=== PATIENT | male | born 1960 | race Caucasian/White ===

== ENCOUNTER 2016-04-29 10:42 | Outpatient (CLI) | payer BC ==
[~2016-04-29] VITALS: Ht 177.8 cm; Wt 118.2 kg
--- NOTE | ~2016-04-29 | HEMODYNAMI ---
PATIENT:JENNI CHEN MEDICAL RECORD: [id number] : 62 [facility] [place] [id number] ADMISSION DATE: 04/29/16 Generatedon:04/29/201617:07 Patient name: JENNI CHEN Patient #: [id number] : 1960 Date of study: 04/29/2016 Page: Of Hemodynamic Procedure Report Patient Data Patient Demographics Procedure consent was obtained First Name: JENNI Gender: Male Last Name: GUSTAVO Suffix: [facility] Initial: M : 1960 Patient #: [id number] Age: 56 year(s) Race: SSN: [id number] Additional ID: [id number] Contact details Address: [place] [address] State: [place] City: [place] Zip code: [address] Past Medical History Allergies Allergen Reaction Date Comments Reported Other allergy 07/24/2014 Aleve (rash) Other allergy 04/29/2016 Aleve Admission Admission Data Admission Date: 04/29/2016 Admission Time: 10:42 Arrival Date: 04/29/2016 Arrival Time: 10:42 Admit Source: Emergency Insurance Payor: Private department health insurance [facility] [place] [facility] Height (in.): 70 BSA: 2.33 (m2) Height (cm.): 177.8 BMI: 37.31 (kg/m2) Weight (lbs.): 260 Weight (kg.): 117.93 Lab Results Lab Result Date: 04/29/2016 Lab Result Time: 0:00 Biochemistry Name Units Result Min Max BUN mg/dl 19 --(----)*- 7 18 Creatinine mg/dl 1 --(--*-)-- 0.6 1.3 CBC Name Units Result Min Max Hemoglobin g/dl 14.1 --(*---)-- 13.5 17.5 Procedure Procedure Types Cath Procedure Diagnostic Procedure [facility] w/Coronaries FFR/IVUS Intra-Coronary IVUS Initial Intra-Coronary IVUS Additional PCI Procedure Coronary Stent Initial Peripheral Cath Diagnostic Procedure Cath Peripheral Hpuht-Lxlqayt-Ryl-Off Procedure Description Procedure Date Procedure Date: 04/29/2016 Procedure Start Time: 16:40 Procedure End Time: 17:04 Procedure Staff Name Function Supa Vaughn MD Performing Physician Ros Cox RT Scrub Jyothi Son RN Nurse Lloyd Swenson RT Passenger Coach Driver Stella Austin RT Monitor Procedure Data Cath Procedure Fluoroscopy Diagnostic fluoroscopy Total fluoroscopy Time: 6.6 time: 6.6 min min Diagnostic fluoroscopy Total fluoroscopy dose: dose: 1048 mGy 1048 mGy Contrast Material Contrast Material Type Amount (ml) Isovue 370 124 Entry Location Entry Primary Successful Side Size Upsize Upsize Entry Closure Castellon ccessful Closure Location (Fr) 1 (Fr) 2 (Fr) Remarks Device Remarks Radial Right 6 Fr Mechanical artery Short Compression Estimated blood loss: 5 ml Diagnostic catheters Device Type Used For End Catheter Placement Terumo 5Fr Sebas 110cm Multi-vessel catheter Angiography Procedure Complications No complications Procedure Medications Medication Administration Route Dosage Oxygen NC 2 l/min Heparin Flush Bag added to field 2 bags (1000units/500ml NS) Lidocaine 2% added to field 20 Radial Cocktail added to field 1 syringe (Verapomil 2mg/Nitro 400mcg/Heparin 1500units) Benadryl I.V. 50 mg Versed I.V. 1 mg Fentanyl I.V. 50 mcg Versed I.V. 1 mg Fentanyl I.V. 50 mcg Radial Cocktail I.A. 1 syringe (Verapomil 2mg/Nitro 400mcg/Heparin 1500units) Versed I.V. 1 mg Fentanyl I.V. 50 mcg Heparin Bolus I.V. 4000 units Integrilin (Bolus I.V. 10.7 ml 2mg/ml) Plavix P.O. 600 mg Hemodynamics Rest BSA: 2.33 (m2) HGB: 14.1 (g/dl) O2 Consumption: Estimated: 254.31 (ml/min) O2 Co nsumption indexed: Estimated:109.15 (ml/min/m) Heart Rate: 45 (bpm) Pressure Samples Time Site Value (mmHg) Purpose Heart Use Rate(bpm) 16:44 LV 78/67,76 Snapshot 89 Snapshots Pre Cath Intra NCS Post Cath Vital Signs Time Heart Resp SPO2 NIBP (mmHg) Rhythm Pain Sedation Rate (ipm) (%) Status Level (bpm) 16:24:11 79 16 97 141/95(111) NSR 0 (11) 10(A) , No pain 16:28:27 71 15 98 139/92(116) NSR 0 (11) 10(A) , No pain 16:32:41 75 16 95 132/88(108) NSR 0 (11) 10(A) , No pain 16:36:59 77 16 95 124/83(101) NSR 0 (11) 10(A) , No pain 16:41:13 75 16 96 129/80(117) NSR 0 (11) 9(A) , No pain 16:45:25 83 16 94 129/112(116) NSR 0 (11) 9(A) , No pain 16:49:41 85 16 96 124/76(99) NSR 0 (11) 9(A) , No pain 16:53:59 84 26 96 126/71(105) NSR 0 (11) 9(A) , No pain 16:58:15 84 16 99 122/70(101) NSR 0 (11) 9(A) , No pain 17:02:31 83 16 98 120/75(103) NSR 0 (11) 9(A) , No pain 17:03:57 83 16 99 124/80(109) NSR 0 (11) 10(A) , No pain Medications Time Medication Route Dose Verified Delivered Reason Note s Effectiveness by by 16:27:48 Oxygen NC 2 l/min Supa Roe Per physician Johana Son RN 16:27:55 Heparin Flush added 2 bags Supa Cowart used for Bag to Johana Vaughn MD procedure (1000units/500ml field NS) 16:28:03 Lidocaine 2% added 20ml Supa Cowart used for to vial Johana Vaughn MD procedure field 16:28:09 Radial Cocktail added 1 Supa Cowart used for (Verapomil to syringe Johana Vaughn MD procedure 2mg/Nitro field 400mcg/Heparin 1500units) 16:28:16 Benadryl I.V. 50 mg Supa Reo Per physician Johana Son RN 16:36:24 Versed I.V. 1 mg Supa Jyothi for sedation Johana Son RN 16:36:37 Fentanyl I.V. 50 mcg Supa Jyothi for sedation Johana Son RN 16:38:50 Versed I.V. 1 mg Supa Jyothi for sedation Johana Son RN 16:38:56 Fentanyl I.V. 50 mcg Supa Jyothi for sedation Johana Son RN 16:40:49 Versed I.V. 1 mg Supa Jyothi for sedation Johana Son RN 16:40:54 Fentanyl I.V. 50 mcg Supa Jyothi for sedation Johana Son RN 16:43:36 Radial Cocktail I.A. 1 Supa Supa for (Verapomil syringe Johana Vaughn MD vasodilation 2mg/Nitro 400mcg/Heparin 1500units) 16:58:04 Heparin Bolus I.V. 4000 Supa Jyothi for dose units Johana Son RN anticoagulation verified with dr vaughn 16:59:49 Integrilin I.V. 10.7 ml Supa Jyothi for (Bolus 2mg/ml) Johana Son RN antiplatelet therapy 17:04:47 Plavix P.O. 600 mg Supa Jyothi for Johana Son RN antiplatelet therapy Procedure Log Time Note 16:11:17 Admit Source: Emergency department 16:11:42 Diagnostic Cath status Elective 16:11:45 Lloyd Swenson RT(R) sent for patient. Start room use. 16:11:46 Time tracking: Regular hours 16:11:52 Plan of Care:Hemodynamics will remain stable., Cardiac rhythm will remain stable., Comfort level will be maintained., Respiratory function will remain adequate., Patient/ family verbilizes understanding of procedure., Procedure tolerated without complication., Recovers from procedure without complications.. 16:17:56 Informed consent obtained and on chart 16:18:07 Arrival Date: 04/29/2016 10:42:00 AM 16:18:34 Insurance Payor : Private health insurance 16:19:11 Lab Result : Hemoglobin 14.1 g/dl 16:19:11 Lab Result : Creatinine 1 mg/dl 16:19:11 Lab Result : BUN 19 mg/dl 16:19:26 Patient received from ED to CCL 1 Alert and oriented. Tansferred to table in Supine position. 16:19:27 Warm blankets applied, and carla hugger turned on for patient comfort. 16:19:27 Correct patient and procedure confirmed by team. 16:19:28 ECG and BP/O2 sat monitors applied to patient. 16:23:02 Vital chart was started 16:23:12 Baseline sample Acquired. 16:23:16 Rhythm: sinus rhythm 16:27:48 Oxygen 2 l/min NC was given by Jyothi Son RN; Per physician; 16:27:55 Heparin Flush Bag (1000units/500ml NS) 2 bags added to field was given by Supa Vaughn MD; used for procedure; 16:28:03 Lidocaine 2% 20ml vial added to field was given by Supa Vaughn MD; used for procedure; 16:28:09 Radial Cocktail (Verapomil 2mg/Nitro 400mcg/Heparin 1500units) 1 syringe added to field was given by Supa Vaughn MD; used for procedure; 16:28:16 Benadryl 50 mg I.V. was given by Jyothi Son RN; Per physician; 16:33:47 Baseline sample Acquired. 16:33:50 Full Disclosure recording started 16:34:13 H&P Date Dictated: 04/29/2016 Within 30 days and on chart., H&P Addendum completed by physician on day of procedure. (MUST COMPLETE FOR ALL OUTPATIENTS). 16:34:14 Pre-procedure instructions explained to patient. 16:34:15 Pre-op teaching completed and patient verbalized understanding. 16:34:17 Family in waiting room. 16:34:18 Patient NPO since Midnight. 16:35:01 Patient allergic to Other allergyAleve 16:35:07 Is the patient allergic to Iodine/contrast media? No. 16:35:08 Was the patient premedicated? No 16:35:10 Is patient on blood thinner?Yes 16:35:13 ACC The patient was administered the following blood thiners within the last 24 hours: ACCPlavix 16:35:16 Patient diabetic? No. 16:35:18 Previous problem with sedation/anesthesia? No ? 16:35:20 Snore? Yes 16:35:21 Sleep apnea? No 16:35:23 Deviated septum? No 16:35:24 Opens mouth fully? Yes 16:35:25 Sticks out tongue? Yes 16:35:32 Airway obstruction? Yes copd, asthma 16:35:48 Dentures? No ? 16:35:52 Pre procedure: right dorsailis pedis pulse 1+ Palpable, but thready & weak; easily obliterated 16:35:55 Modified Matthew's test Radial < 7 seconds 16:35:57 Patient pain scale 0/10 ?. 16:36:03 IV patent on arrival in left forearm with 0.9% NaCl at [facility]. 16:36:07 Lab results completed and on chart. 16:36:13 Right Radial & Right Groin area was prepped with chlora-prep and draped in sterile fashion 16:36:14 Alarms reviewed by R. N. 16:36:14 Sharps counted by scrub and verified by R.N. 16:36:16 Physician arrived 16:36:16 --------ALL STOP TIME OUT------ 16:36:17 Final Timeout: patient, procedure, and site verified with staff and physician. All members of the team are in agreement. 16:36:19 Right Radial & Right Groin site verified by team. 16:36:21 Physical assessment completed. ASA score P 2 - A patient with mild systemic disease as per Supa Vaughn MD. 16:36:24 Versed 1 mg I.V. was given by Jyothi Son RN; for sedation; 16:36:24 Sedation plan: IV Moderate Sedation Versed, Fentanyl 16:36:30 Use device set Radial Dx 16:36:31 Acist Syringe opened to sterile field. 16:36:32 Cardinal Cath Pack opened to sterile field. 16:36:32 Bag Decanter opened to sterile field. 16:36:32 Terumo 6Fr Slender Glidesheath opened to sterile field. 16:36:33 St Donell 260cm J .035 wire opened to sterile field. 16:36:33 Acist Hand Control opened to sterile field. 16:36:34 Acist Manifold opened to sterile field. 16:36:37 Fentanyl 50 mcg I.V. was given by Jyothi Son RN; for sedation; 16:36:37 Tegaderm 4 x 4 opened to sterile field. 16:38:46 Zero performed for pressure channel P1 16:38:50 Versed 1 mg I.V. was given by Jyothi Son RN; for sedation; 16:38:56 Fentanyl 50 mcg I.V. was given by Jyothi Son RN; for sedation; 16:40:19 Procedure type changed to Cath procedure, Diagnostic procedure, LHC, LHC w/Coronaries, FFR/IVUS, Intra-Coronary IVUS Initial, Intra-Coronary IVUS Additional, PCI procedure, Coronary Stent Initial, Peripheral Cath Diagnostic Procedure, Cath Peripheral, Aiysy-Hmzwoce-Was-Off 16:40:28 Procedure started. 16:40:32 Local anesthetic to right radial artery with Lidocaine 2% by Supa Vaughn MD.INITIAL ACCESS ONLY 16:40:49 Versed 1 mg I.V. was given by Jyothi Son RN; for sedation; 16:40:54 Fentanyl 50 mcg I.V. was given by Jyothi Son RN; for sedation; 16:43:14 A 6 Fr Short sheath was inserted into the Right Radial artery 16:43:36 Radial Cocktail (Verapomil 2mg/Nitro 400mcg/Heparin 1500units) 1 syringe I.A. was given by Supa Vaughn MD; for vasodilation; 16:43:40 A [employer] 5Fr Sebas 110cm catheter was advanced over the wire and used for Multi-vessel Angiography. 16:44:37 LV hemodynamics recorded. 16:44:38 LV gram done using YUSUF 16:44:41 Injector settings: Ml/sec: 5, Volume: 15, 16:44:46 EF : 55 % 16:44:51 LCA angiography performed. 16:44:53 Injector settings: Ml/sec: 3, Volume: 6, 16:47:09 RCA angiography performed. 16:47:12 Injector settings: Ml/sec: 3, Volume: 6, 16:47:13 Catheter removed. 16:47:14 Proceeding to intervention. 16:47:28 Hayes Whisper J 300cm 0.014 guide wire opened to sterile field. 16:47:29 FastModel Sports BasixCompak Inflation Kit opened to sterile field. 16:47:30 Micro Hi-Willie Berenstein Catheter opened to sterile field. 16:47:56 5 Fr berenstein guide catheter was inserted over the wire 16:48:19 Abdominal angiogram w/ runoff was performed. 16:48:51 [place] IVUS Catheter opened to sterile field. 16:48:58 Cordis 6FR XBLAD 3.5 guide catheter opened to sterile field. 16:49:10 Catheter removed. 16:50:02 6 Fr xblad 3.5 guide catheter was inserted over the wire 16:50:09 whisper wire advanced. 16:50:10 Wire advanced across lesion. 16:50:11 IVUS catheter advanced over wire. 16:51:47 IVUS pass to Circ lesion performed. 16:55:14 Wire redirected to lad. 16:57:30 IVUS pass to LAD lesion performed. 16:57:30 IVUS catheter removed over wire. 16:58:04 Heparin Bolus 4000 units I.V. was given by Jyothi Son RN; for anticoagulation; dose verified with dr vaughn 16:59:49 Integrilin (Bolus 2mg/ml) 10.7 ml I.V. was given by Jyothi Son RN; for antiplatelet therapy; 16:59:54 Inflation Number: 1 A OCZ Technologytronic Integrity 3.5 X 15 stent was prepped and advanced across the Mid LAD. The stent was deployed at 17 ARNULFO for 0:10 (min:sec). 17:00:11 Inflation number: 2 The stent balloon was then re-inflated across the Mid LAD to 15 ARNULFO for 0:10 (min:sec). 17:01:08 Stent catheter was removed intact over wire. 17:01:09 Wire removed. 17:01:09 Guide catheter removed. 17:01:22 Terumo TR Band Large opened to sterile field. 17:02:42 Sheath removed intact; hemostasis achieved with Mechanical Compression to the Right Radial artery. 17:02:51 Procedure ended.(Physican Out) 17:03:45 Fluoroscopy time 06.60 minutes. 17:03:49 Fluoroscopy dose: 1048 mGy 17:03:49 Flurop Dose total: 1048 17:04:00 Contrast amount:Isovue 370 124ml. 17:04:01 Sharps counted by scrub and verified by R.N. 17:04:04 TR band inflated with 11cc of air. 17:04:06 Insertion/operative site no bleeding no hematoma. 17:04:10 Post right radial artery:stable 17:04:21 Post Procedure Pulses reassessed and unchanged 17:04:23 Post procedure rhythm: unchanged. 17:04:26 Estimated blood loss: 5 ml 17:04:27 Post procedure instruction explained to patient.Patient verbalizes understanding. 17:04:28 Patient needs reinforcement of post procedure teaching. 17:04:28 Procedure and supply charges have been captured, reviewed, submitted and are correct. 17:04:32 Procedure Complication : No complications 17:04:35 Vital chart was stopped 17:04:38 Report given to Outpatients. 17:04:41 Patient transfered to Outpatients with Stretcher. 17:04:43 Procedure ended. 17:04:43 Full Disclosure recording stopped 17:04:47 Plavix 600 mg P.O. was given by Jyothi Son RN; for antiplatelet therapy; 17:04:54 ACC-PCI Only Patient was given prescriptions, or instructed by Supa Vaughn MD to start/continue the following medications upon discharge: Plavix 17:04:56 End room use (Document Last) 17:06:00 Patient Height : 177.8 inches 17:06:03 Patient Weight : 117.93 lbs Intervention Summary Intervention Notes Time ActionType Lesion and Equipment Action# Pressure Duration Attributes Used 16:59:54 Place stent Mid LAD Medtronic 1 17 00:10 Integrity 3.5 X 15 stent 17:00:11 Reinflate Mid LAD Medtronic 2 15 00:10 stent Integrity balloon 3.5 X 15 stent Device Usage Item Name Manufacture Quantity Catalog Hospital Part Current Minimal Lot# / Number Charge Number Stock Stock Serial# Code Acist Acist 1 51476 848504 329123 193535 20 Syringe Medical Systems Inc Cardinal Cardinal [address] 053723 63914 812502 5 Cath Pack Health Bag Microtek 1 2001S 427123 79931 977253 5 DecHello! Messenger [employer]. Terumo 6Fr Terumo 1 [id number] 454450 579226 162262 [address] Donell St Donell 1 550627 078715 739880 327664 30 260cm J .035 wire Acist Hand Acist 1 87553 020674 776887 484188 5 Control Medical Systems Inc Acist Acist 1 92340 494266 790421 469378 5 Manifold Medical Systems Inc Tegaderm 4 3M 1 1626W 740660 549905 372164 5 x 4 Terumo 5Fr Terumo 1 78-0336 118415 815300 250047 5 Sebas 110cm catheter [place] 1 [id number] 313156 827350 581261 5 Whisper J Vascular 300cm 0.014 guide wire [facility] 1 NC4255 114784 493168 908827 15 BasixCompak Medical Inflation Kit Micro [place] 1 [id number] 531521 897567 625659 5 Hi-Willie Scientific Berenstein Catheter [place] 1 [id number] 539877 040715 888874 8 [place] Eagleye IVUS Catheter Cordis 6FR Cardinal 1 [id number] 636385 073514 568573 10 XBLAD 3.5 Health guide catheter Medtronic Medtronic 1 [id number] 203104 301910 258883 4 [id number] Integrity 3.5 X 15 stent Terumo TR Terumo 1 [id number] 044095 285608 40 Band Large Signature Audit [place] Stage Time Signature Unsigned Intra-Procedure 04/29/2016 Stella Austin 5:07:46 PM RT(R) Signatures Monitor : Stella Austin RT Signature : Date : Time : [facility] [address] [place] [address]
[~2016-04-29 10:42] MED LIST: ASPIRIN 81 MG E81 MG PO; CHOLESTEROL MED; FISH OIL 1,0001 CA1 PO; IMDUR30 MG PO; LIPITOR40 MG PO; NITROQUICK0.4 MG; PLAVIX75 MG PO; PROAIR HFA8.5 GM INH; SPIRIVA18 MCG INH; TRI-VI-SOL50 ML PO
[2016-04-29 11:34] LABS: BASOPHILS 0.7 % (0.0-2.0); HEMATOCRIT 42.1 % (42.0-54.0); HEMOGLOBIN 14.1 g/dL (13.5-17.5); IMMATURE GRANULOCYTES 0.7 % (0-5); LYMPHOCYTES 33.7 % (15-50); MCH 31.1 pg (26.0-34.0); MCHC 33.5 g/dL (31.0-37.0); MCV 92.9 fL (80.0-100.0); MEAN PLATELET VOLUME 9.5 fL (7.4-10.4); MONOCYTES 9.1 % (2-11); NEUTROPHILS 53.8 % (40-80); PLATELET COUNT 209 10x3/uL (130-400); RBC 4.53 10x6/uL (4.20-6.10); RDW 12.7 % (11.5-14.5); WBC 7.7 10x3/uL (4.8-10.8)
[2016-04-29 12:06] LABS: ALBUMIN 3.9 g/dL (3.4-5.0); ALKALINE PHOSPHATASE 88 U/L (46-116); ALT (SGPT) 67 U/L (10-68); CALC OSMOLALITY 281 mosm/kg (275-300); CALCIUM 9.6 mg/dL (8.5-10.1); CARBON DIOXIDE 27.7 mmol/L (21.0-32.0); CHLORIDE - SERUM 102 mmol/L (98-107); POTASSIUM - SERUM 3.7 mmol/L (3.5-5.1); PROTEIN - SERUM 7.4 g/dL (6.4-8.2); SODIUM 138 mmol/L (136-145); UREA NITROGEN 19 mg/dL (7-18); eGFR NON AFRICAN AMERICAN 82 mL/min (90-120)
[2016-04-29 12:10] LABS: GLUCOSE 175 mg/dL (74-106)
[2016-04-29 12:17] LABS: CKMB 2.3 U/L (0.0-3.6); CREATINE KINASE 319 UL (21-232); TROPONIN-I < 0.017 ng/mL (0.000-0.060)
[2016-04-29 15:55] VITALS: BP 135/86; Ht 177.8 cm; Wt 118.2 kg
--- NOTE | 2016-04-29 17:59 | NUR ---
1720 NO TELEMENTARY AVAILABLE
--- NOTE | 2016-04-29 20:40 | NUR ---
AIR WEANING FROM TR BAND COMPLETE, TR BAND REMOVED, BANDAGE PLACED TO RIGHT WRIST. NO BLEEDING OR SWELLING AT PUNCTURE SITE. PATIENT AMBULATES TO BATHROOM WITH STAND-BY ASSIST AND URINATES LARGE AMOUNT IN TOILET WITHOUT DIFFICULTY. RIGHT FOREARM PIV DC'D WITH TIP INTACT. DRESSING IN PERSONAL CLOTHING.
--- NOTE | 2016-04-29 21:00 | NUR ---
DISCHARGE INSTRUCTIONS REVIEWED WITH PATIENT, DISCHARGED HOME VIA WHEELCHAIR TO PRIVATE VEHICLE WITH FRIEND
--- NOTE | 2016-05-02 11:12 | OP ---
PATIENT NAME: JENNI CHEN SR MEDICAL RECORD: [id number] :62 LOCATION:D.OPS ADMISSION DATE: SURGEON: ADELE TAYLOR MD DATE OF OPERATION: 04/29/2016 PROCEDURES: 1. PTCA stent LAD. 2. Intravascular ultrasound of the LAD. 3. Left heart catheterization. 4. Selective coronary angiography. 5. Left ventriculogram. INDICATION: Angina and coronary artery disease. PROCEDURE IN DETAIL: After informed consent was obtained and after a detailed explanation of the risks, benefits as well as alternative therapies, the patient elected to proceed with angiogram and angioplasty. The right radial area was prepped and draped in normal sterile fashion. The right radial artery was cannulated via modified Seldinger technique with placement of 6-Emirati sheath. All catheters exchanged through this sheath. FINDINGS: The left ventriculogram was performed in standard 30-degree YUSUF view reveals good cardiac wall motion throughout all segments. Overall ejection fraction estimated at 60%. SELECTIVE CORONARY ANGIOGRAPHY: 1. Left main significant angiographic disease. 2. Left anterior descending has previously placed stent just before this, there is 66% in-stent restenosis and stenosis confirmed by intravascular ultrasound. 3. Left circumflex has moderate irregularities, but no flow-limiting stenosis. Intravascular ultrasound of left circumflex reveals no stenosis greater than 20% to 30%. 4. Right coronary has moderate irregularities, but no flow-limiting stenosis. PTCA STENT OF THE LAD: The stent used was a 3.5 x 15-mm Integrity taken to 17 atmospheres. Result was 0% residual stenosis. OVERALL IMPRESSION: Successful percutaneous transluminal coronary angioplasty stent of the left anterior descending going from 65-70% initial stenosis confirmed by intravascular ultrasound to 0% residual stenosis. TRANSINT:[id number] Voice Confirmation ID: [id number] DOCUMENT ID: [id number] ADELE TAYLOR MD at 1112 CC: [id number] DICTATION DATE: 04/29/161705 MANDARIN CHINESE TEACHER: 04/29/162125 DEP CLI 04/29/[address] [address]
--- NOTE | 2016-05-02 11:12 | OP ---
PATIENT NAME: JENNI CHEN SR MEDICAL RECORD: [id number] :62 LOCATION:D.[facility] ADMISSION DATE: SURGEON: ADELE TAYLOR MD DATE OF OPERATION: 04/29/2016 Addendum Bilateral extremity angiography was performed with the Berenstein catheter selecting each lower extremity. TRANSINT:[id number] Voice Confirmation ID: [id number] DOCUMENT ID: [id number] ADELE TAYLOR MD at 1112 CC: [id number] DICTATION DATE: 05/01/16 1219 FRATERNITY HOUSE COOK: 05/01/16 1450 DEP CLI 04/29/16 [facility] [address] [place] [id number]
--- NOTE | 2016-05-23 08:46 | HP ---
PATIENT: JENNI CHEN MEDICAL RECORD: [id number] ACCOUNT: [id number] LOCATION:[facility] : 62 ADMISSION DATE: 04/29/16 HISTORY AND PHYSICAL EXAMINATION ADMITTING DIAGNOSES: 1. Angina. 2. Coronary artery disease. HISTORY OF PRESENT ILLNESS: This is a gentleman presents with increasing anginal symptomatology. He has a past history of coronary artery disease. His chest pain is just like that of his previous chest pain. PHYSICAL EXAMINATION: GENERAL APPEARANCE: Well-nourished, well-developed, appears stated age. Level of distress, comfortable. PSYCHIATRIC: Mental status, alert, normal affect. Orientation, oriented to time, place and person. EYES: Lids and conjunctiva, noninjected. No discharge, no pallor. ENT: Lips, teeth, gums, normal dentition. Oropharynx, no cyanosis, no pallor. NECK: Carotid arteries, bilateral normal upstroke, no bruits, no thrills. JUGULAR VEINS: No jugular venous pressure or distention. CERVICAL LYMPH NODES: Nontender, nonenlarged. THYROID: Not enlarged. Nontender. No nodules. LUNGS: Respiratory effort, unlabored. CHEST: Normal curvature. No thoracic deformity. No chest wall tenderness. Percussion, resonant. Auscultation, clear. No wheezes, no rales, no rhonchi. CARDIOVASCULAR: Precordial exam, nondisplaced. No heaves or pericardial thrills. Rate and rhythm, regular. Heart sounds, normal S1, normal S2. No S3, no gallop, no rub. Systolic murmur, not heard. Diastolic murmur, not heard. EXTREMITIES: No cyanosis, no edema. Peripheral pulses, full and equal in all extremities, except as noted. No bruits appreciated. ABDOMEN: Soft, nondistended. Normal aorta. No bruit. Nontender. No masses. Liver, nontender, no hepatomegaly. Spleen, nontender, no splenomegaly. MUSCULOSKELETAL: No joint tenderness. No joint swelling. No erythema. NEUROLOGICAL: Normal gait, normal strength, normal tone. SKIN: Warm and dry. REVIEW OF SYSTEMS: The patient reports easy bruising but reports no swollen glands. The patient reports no fever, no night sweats, no significant weight gain, no significant weight loss. No significant exercise tolerance. The patient reports no dry eyes, no irritation, no vision change. Patient reports no difficulty hearing and no ear pain. Patient reports no frequent nose bleeds or nose and sinus problems. Patient reports on arm pain on exertion. No shortness of breath while lying down. No history of heart murmur. Patient reports no cough, no wheezing or coughing up blood. Patient reports no abdominal pain, no vomiting. Normal appetite. No diarrhea and not vomiting blood. No nausea and no constipation. Patient reports no incontinence. No difficulty urinating. No hematuria. No increased frequency. Patient reports no muscle aches. No weakness, no arthralgias, no back pain. No swelling of the extremities. Patient reports no abnormal mole, no jaundice, no rashes. Reports no loss of consciousness. No weakness and no numbness. No seizures, dizziness, or headaches. The patient reports no depression, no sleep disturbance, feeling safe in a relationship and no alcohol abuse. Patient reports on fatigue. Reports no runny nose or sinus pressure. No itching, no hives, and no frequent HISTORY AND PHYSICAL [id number] JENNI CHEN SR sneezing. OVERALL IMPRESSION: Chest pain compatible with angina, most likely he has recurrent hemodynamically significant coronary artery disease. We will proceed with coronary angiography. Further care depends upon findings of the angiography. TRANSINT:[id number] Voice Confirmation ID: [id number] DOCUMENT ID: [id number] ADELE TAYLOR MD at 0846 CC: [id number] DICTATION DATE: 05/09/16 1227 MARGARINE MAKER: 05/09/16 1402 DEP CLI 04/29/16 [place] [id number]
== END 2016-04-29 21:05 | disposition home or self-care (01) ==
LOC: D.ER 10:42 → D.OPS 10:42 → D.SDCHOLD 10:42 → EDSTATUS 12:15 → D.SDCHOLD 14:40 → D.OPS 21:05
PROVIDERS: Emergency Medicine
DX: I25.119 Atherosclerotic heart disease of native coronary artery with unspecified angina pectoris (principal); T82.855A Stenosis of coronary artery stent, initial encounter

== ENCOUNTER → 2016-05-05 15:01 | Outpatient (CLI) | payer BC ==
[2016-04-29 15:55] VITALS: BMI 37.3
== END | disposition home or self-care (01) ==
LOC: D.US 11:00
DX: M79.605 Pain in left leg (principal)

== ENCOUNTER → 2016-05-21 07:38 | Outpatient (CLI) | payer BC ==
[2016-04-29 15:55] VITALS: BMI 37.3
== END ==
LOC: D.MRI 07:38
DX: M54.16 Radiculopathy, lumbar region (principal)

== ENCOUNTER → 2016-08-15 10:36 | Outpatient (CLI) | payer BC ==
[2016-04-29 15:55] VITALS: BMI 37.3
== END | disposition home or self-care (01) ==
LOC: D.RT 10:36
DX: J44.9 Chronic obstructive pulmonary disease, unspecified (principal)

== ENCOUNTER → 2016-09-17 14:26 | Outpatient (CLI) | payer BC ==
[2016-04-29 15:55] VITALS: BMI 37.3
== END | disposition home or self-care (01) ==
LOC: D.RAD 14:26
DX: M48.06 Spinal stenosis, lumbar region (principal)

== ENCOUNTER → 2017-05-05 07:44 | Outpatient (CLI) | payer MEDICAID ==
[2016-04-29 15:55] VITALS: BMI 37.3
--- NOTE | ~2017-05-05 | ST ---
PATIENT:JENNI CHEN MEDICAL RECORD: [id number] SEX: M LOCATION:[facility] ORDER #: ADMISSION DATE: 05/05/17 AGE OF PATIENT: 57 REFERRING PHYSICIAN: INTERPRETING PHYSICIAN: LOYD LYNN MD DATE OF SERVICE: 05/05/2017 PROCEDURE: Lexiscan stress test. INDICATION: Chest pain, coronary artery disease. PROTOCOL: The patient underwent a standard Lexiscan injection without difficulty. He had no ST or T-wave changes during the procedure. Procedure was terminated for completion of the protocol. NUCLEAR INJECTION: 8.4 mCi sestamibi injected at 0825 hours and the stress portion was done on the same day with 24.5 mCi sestamibi injected at 1045 hours. Gated imaging revealed an ejection fraction of 61%. The SPECT imaging revealed a mild anterior lateral defect. CONCLUSION: This is a mildly abnormal stress test. The perceived ischemic burden is very small with preserved LV systolic function. Risk score is low. It would be reasonable to treat underlying risk factors and medical management. However, if clinical situation dictates angiography may be helpful. TRANSINT:[id number] Voice Confirmation ID: [id number] DOCUMENT ID: [id number] LOYD LYNN MD CC: [id number] DICTATION DATE: 05/07/17814 COLLEGE ATHLETIC DIRECTOR: 05/07/17 1018 DEP CLI 05/05/17 [id number] [place] [address]
== END | disposition home or self-care (01) ==
LOC: D.NM 07:44
DX: I25.10 Atherosclerotic heart disease of native coronary artery without angina pectoris (principal); I10 Essential (primary) hypertension; R06.00 Dyspnea, unspecified

== ENCOUNTER 2018-07-20 16:36 | Inpatient (IN) | payer MEDICAID ==
[~2018-07-20] VITALS: Ht 180.3 cm; Wt 122.8 kg
--- NOTE | ~2018-07-20 | HEMODYNAMI ---
PATIENT:JENNI CHEN MEDICAL RECORD: [id number] : 62 LOCATION:[facility] D.2105 [facility]# [id number] ADMISSION DATE: 07/20/18 Generatedon:07/21/201811:52 Patient name: JENNI CHEN Patient #: [id number] : 1960 Date of study: 07/21/2018 Page: Of Hemodynamic Procedure Report Patient Data Patient Demographics Procedure consent was obtained First Name: JENNI Gender: Male Last Name: GUSTAVO Suffix: [facility] Initial: M : 1960 Patient #: [id number] Age: 58 year(s) Race: SSN: [id number] Additional ID: [id number] Contact details Address: [address] [address] State: [place] City: [place] Zip code: [address] Past Medical History Allergies Allergen Reaction Date Comments Reported Other allergy 07/24/2014 Aleve (rash) Other allergy 04/29/2016 Aleve Admission Admission Data Admission Date: 07/20/2018 Admission Time: 18:48 Room #: D.2105 Procedure Procedure Types Cath Procedure Diagnostic Procedure LHC [facility] w/Coronaries FFR/IVUS Intra-Coronary IVUS Initial Procedure Description Procedure Date Procedure Date: 07/21/2018 Procedure Start Time: 11:41 Procedure End Time: 11:51 Procedure Staff Name Function Supa Vaughn MD Performing Physician Sabas Benavides RT Monitor Stella Austin RT Scrub Fiorella Hart RN Nurse Procedure Data Cath Procedure Fluoroscopy Diagnostic fluoroscopy Total fluoroscopy Time: 2.5 time: 2.5 min min Diagnostic fluoroscopy Total fluoroscopy dose: 799 dose: 799 mGy mGy Contrast Material Contrast Material Type Amount (ml) Isovue 300 77 Entry Location Entry Primary Successful Side Size Upsize Upsize Entry Closure Castellon ccessful Closure Location (Fr) 1 (Fr) 2 (Fr) Remarks Device Remarks Femoral Right 6 Fr Mechanical artery Short Compression Diagnostic catheters Device Type Used For End Catheter Placement DIAGNOSTIC [place] Furnace 110cm 5 LV Angiography Fr catheter ([id number]) Procedure Complications No complications Procedure Medications Medication Administration Route Dosage Oxygen etCO2 Nasal cannula 2 l/min Lidocaine 2% added to field 20 Heparin Flush Bag added to field 2 bags (1000units/500ml NS) 0.9% NaCl I.V. 100 ml/hr Radial Cocktail added to field 1 syringe (Verapomil 2mg/Nitro 400mcg/Heparin 1500units) Benadryl I.V. 50 mg Versed I.V. 2 mg Fentanyl I.V. 100 mcg Versed I.V. 1 mg Fentanyl I.V. 50 mcg Versed I.V. 1 mg Hemodynamics Rest Heart Rate: 78 (bpm) Snapshots Pre Cath Intra NCS Post Cath Vital Signs Time Heart Resp SPO2 etCO2 NIBP (mmHg) Rhythm Pain Sedation Rate (ipm) (%) (mmHg) Status Level (bpm) 11:20:26 79 20 95 37.4 138/87(114) NSR 0 (11) 10(A) , No pain 11:24:35 75 11 94 41.9 125/78(103) NSR 0 (11) 10(A) , No pain 11:28:45 71 18 95 41.9 108/76(97) NSR 0 (11) 10(A) , No pain 11:32:53 74 19 94 45.6 117/71(92) NSR 0 (11) 10(A) , No pain 11:37:40 71 17 95 44.8 115/75(89) NSR 0 (11) 9(A) , No pain 11:41:48 72 16 94 46.3 119/82(98) NSR 0 (11) 9(A) , No pain 11:46:59 81 16 93 47.1 112/72(93) NSR 0 (11) 9(A) , No pain 11:51:09 75 16 95 46.3 123/68(99) NSR 0 (11) 10(A) , No pain Medications Time Medication Route Dose Verified Delivered Reason Notes Effectiveness by by 11:23:21 Oxygen etCO2 2 l/min Supa Barros used for Nasal Johana Hart drum sprayer cannula 11:23:29 Lidocaine 2% added 20ml Supa Cowart for local to vial Johana Vaughn MD anesthetic field 11:23:34 Heparin Flush added 2 bags Supa Supa used for Bag to Johana Vaughn MD procedure (1000units/500ml field NS) 11:23:43 0.9% NaCl I.V. 100 Supa Buffie Per ml/hr Johana Hart RN physician 11:23:50 Radial Cocktail added 1 Supa Supa for (Verapomil to syringe Johana Vaughn MD vasodilation 2mg/Nitro field 400mcg/Heparin 1500units) 11:24:48 Benadryl I.V. 50 mg Supa Buffie used for Johana Hart RN procedure 11:34:01 Fentanyl I.V. 100 mcg Supa Salazarie for sedation Johana Hart RN 11:34:54 Versed I.V. 2 mg Supa Buffie for sedation Johana Hart RN 11:38:32 Versed I.V. 1 mg Supa Buffie for sedation Johana Hart RN 11:38:37 Fentanyl I.V. 50 mcg Supa Salazarie for sedation Johana Hart RN 11:47:04 Versed I.V. 1 mg Supa Salazarie for sedation Johana Hart RN Procedure Log Time Note 11:00:32 Sabas Benavides RT(R) sent for patient. Start room use. 11:17:39 Time tracking: Regular hours (M-F 7:00 - 5:00) 11:17:42 Plan of Care:Hemodynamics will remain stable., Cardiac rhythm will remain stable., Comfort level will be maintained., Respiratory function will remain adequate., Patient/ family verbilizes understanding of procedure., Procedure tolerated without complication., Recovers from procedure without complications.. 11:17:47 Patient received from Med II to CCL 2 Alert and oriented. Tansferred to table in Supine position. 11:17:48 Warm blankets applied, and carla hugger turned on for patient comfort. 11:17:49 Correct patient and procedure confirmed by team. 11:17:50 Signed procedure consent form obtained from patient. 11:17:51 ECG and BP/O2 sat monitors applied to patient. 11:19:21 Vital chart was started 11:19:22 Baseline sample Acquired. 11:19:25 Rhythm: sinus rhythm 11:19:26 Full Disclosure recording started 11:19:29 H&P Date Dictated: 07/21/2018 Within 30 days and on chart.. 11:19:29 Pre-procedure instructions explained to patient. 11:19:30 Pre-op teaching completed and patient verbalized understanding. 11:19:32 Family unavailable. 11:19:34 Patient NPO since Midnight. 11:19:51 Is the patient allergic to Iodine/contrast media? No. 11:20:01 Is patient on blood thinner?Yes 11:20:03 ACC The patient was administered the following blood thiners within the last 24 hours: ACCPlavix 11:23:12 Patient diabetic? Yes. 11:23:15 If diabetic: On Metformin? No 11:23:15 ----Pre-sedation anethsthesia assessment.---- 11:23:18 Previous problem with sedation/anesthesia? No ? 11:23:20 Snore? Yes 11:23:21 Oxygen 2 l/min etCO2 Nasal cannula was administered by Fiorella Hart RN; used for procedure; 11:23:21 Sleep apnea? Yes 11:23:22 Deviated septum? No 11:23:24 Opens mouth fully? Yes 11:23:25 Sticks out tongue? Yes 11:23:29 Lidocaine 2% 20ml vial added to field was administered by Supa Vaughn MD; for local anesthetic; 11:23:30 Airway obstruction? Yes COPD 11:23:33 Dentures? No ? 11:23:34 Heparin Flush Bag (1000units/500ml NS) 2 bags added to field was administered by Supa Vaughn MD; used for procedure; 11:23:36 Pre procedure: right dorsailis pedis pulse 1+ Palpable, but thready & weak; easily obliterated 11:23:38 Modified Matthew's test Ulnar < 7 seconds 11:23:41 Patient pain scale 0/10 ?. 11:23:43 0.9% NaCl 100 ml/hr I.V. was administered by Fiorella Hart RN; Per physician; 11:23:50 Radial Cocktail (Verapomil 2mg/Nitro 400mcg/Heparin 1500units) 1 syringe added to field was administered by Supa Vaughn MD; for vasodilation; 11:23:50 IV patent on arrival in right hand with 0.9% NaCl at [facility]. 11:23:54 Lab results completed and on chart. 11:23:57 Right Radial & Right Groin area was prepped with chlora-prep and draped in sterile fashion 11::58 Alarms reviewed by R. N. ::58 Sharps counted by scrub and verified by R.N. 11:24:48 Benadryl 50 mg I.V. was administered by Fiorella Hart RN; used for procedure; : Physician arrived --------ALL STOP TIME OUT------ : Final Timeout: patient, procedure, and site verified with staff and physician. All members of the team are in agreement. 11:33:25 Right Radial & Right Groin site verified by team. 11:33:29 Maximum allowable Isovue 300 dose 300ml. Physician notified. (300ml for normal creatinines. For patients with creatinine of 1.7 or higher multiply weight(kg) x 5 divided by creatinine.) 11:33:32 Fire Safety Assessment: A--An alcohol-based skin anteseptic being used preoperatively., C--Open oxygen or nitrous oxide is being used., D--An ESU, laser, or fiber-optic light is being used. 11:33:35 Physical assessment completed. ASA score P 2 - A patient with mild systemic disease as per Supa Vaughn MD. 11:33:39 Sedation plan: IV Moderate Sedation Medication:Versed, Fentanyl 11:34:01 Fentanyl 100 mcg I.V. was administered by Fiorella Hart RN; for sedation; 11:34:54 Versed 2 mg I.V. was administered by Fiorella Hart RN; for sedation; 11:38:32 Versed 1 mg I.V. was administered by Fiorella Hart RN; for sedation; 11:38:37 Fentanyl 50 mcg I.V. was administered by Fiorella Hart RN; for sedation; 11:40:53 Procedure started. 11:41:04 Local anesthetic to right radial artery with Lidocaine 2% by Supa Vaughn MD.INITIAL ACCESS ONLY 11:41:12 A 6 Fr Short sheath was inserted into the Right Femoral artery 11:41:38 Zero performed for pressure channel P1 11:43:20 Use device set Radial Dx or PCI 11:43:21 ACIST Syringe (18967) opened to sterile field. 11:43:21 Bag Decanter () opened to sterile field. 11:43:22 Medline Cath Pack ([id number]) opened to sterile field. 11:43:22 DIAGNOSTIC WIRE .035 260cm J wire (091799) opened to sterile field. 11:43:23 ACIST Hand Control (97875) opened to sterile field. 11:43:25 ACIST Manifold (63969) opened to sterile field. 11:43:28 Tegaderm 4 x 4 (1626W) opened to sterile field. 11:43:28 MBrace Wrist Support ([id number]) opened to sterile field. 11:43:30 TR BAND Large ([id number]) opened to sterile field. 11:43:31 SHEATH 6FR Slender (80-1060) opened to sterile field. 11:43:45 A DIAGNOSTIC [place]ace 110cm 5 Fr catheter (358842) was advanced over the wire and used for LV Angiography. 11:43:49 LV angiography performed. 11:43:51 LV gram done using YUSUF 11:43:55 EF : 55 % 11:44:00 LCA angiography performed. 11:44:39 RCA angiography performed. 11:45:09 Catheter exchanged over wire. 11:46:00 INFLATOR Merit BasixCompak (CI8722) opened to sterile field. 11:46:03 [place] IVUS Catheter (33490D) opened to sterile field. 11:46:04 CHOICE PT Extra Support 182cm wire ([id number]) opened to sterile field. 11:46:13 GUIDE 6FR XB 3.5 catheter ([id number]) opened to sterile field. 11:46:46 6 Fr XB 3.5 guide catheter was inserted over the wire 11:46:50 CPTES wire advanced. 11:46:53 FFR/IVUS 11:46:53 IVUS catheter advanced over wire. 11:47:04 Versed 1 mg I.V. was administered by Fiorella Hart RN; for sedation; 11:47:04 IVUS pass to Circ lesion performed. 11:47:13 Procedure type changed to Cath procedure, Diagnostic procedure, LHC, LHC w/Coronaries, FFR/IVUS, Intra-Coronary IVUS Initial 11:49:42 IVUS catheter removed over wire. 11:49:48 Sheath removed intact; hemostasis achieved with Mechanical Compression to the Right Femoral artery. 11:49:50 Procedure ended.(Physican Out) 11:50:01 Fluoroscopy time 02.50 minutes. 11:50:05 Fluoroscopy dose: 799 mGy 11:50:05 Flurop Dose total: 799 11:50:13 Contrast amount:Isovue 300 77ml. 11:50:14 Sharps counted by scrub and verified by R.N. 11:50:16 TR band inflated with 10cc of air. 11:50:17 Insertion/operative site no bleeding no hematoma. 11:50:25 Post right radial artery:stable 11:50:27 Post Procedure Pulses reassessed and unchanged 11:50:33 Post-procedure physical assessment completed. ASA score P 2 - A patient with mild systemic disease as per Supa Vaughn MD. 11:50:37 Post procedure rhythm: unchanged. 11:50:38 Post procedure instruction explained to patient.Patient verbalizes understanding. 11:50:39 Procedure and supply charges have been captured, reviewed, submitted and are correct. 11:50:58 Procedure Complication : No complications 11:51:00 Vital chart was stopped 11:51:01 See physician's report for complete and final results. 11:51:03 Report given to PCU. 11:51:06 Patient transfered to PCU with Bed. 11:51:07 Procedure ended. 11:51:07 Full Disclosure recording stopped 11:51:12 End room use (Document Last) Device Usage Item Name Manufacture Quantity Catalog Number Hospital Part Current Minim al Lot# / Charge Number Stock Stock Serial# Code ACIST Acist 1 85522 [id number] 319648 940220 20 Syringe Medical (72424) Systems Inc Bag Microtek 1 2001S 302974 55582 535196 5 Decanter Medical Inc. () Medline Medline 1 [id number] 534401 27170 841875 5 Cath Pack ([id number]) DIAGNOSTIC [facility] [place] 1 784744 804432 357552 066364 30 WIRE .035 260cm J wire (037583) ACIST Hand Acist 1 97687 526812 575862 754457 5 Control Medical (75801) Systems Inc ACIST Acist 1 92093 233626 250783 817795 5 Manifold Medical (48101) Systems Inc Tegaderm 4 3M 1 1626W 336415 087246 314530 5 x 4 (1626W) MBrace Advanced 1 140-0250-00 719462 61765 295733 5 Wrist Vascular Support Dynamics ([id number]) TR BAND Terumo 1 MCW60-ATR 583417 346210 789760 40 Large (CPD27UNC) SHEATH 6FR Terumo 1 [id number] 725753 821819 714416 5 Slender (80-1060) DIAGNOSTIC Terumo 1 40-5013 996069 945888 995025 5 [place]ace 110cm 5 Fr catheter (520562) INFLATOR Merit 1 SW6694 715936 339708 430975 15 [facility] Medical BasixCompak (DJ6090) Dum[place] 1 43548H 418374 881899 945974 8 [place] IVUS Catheter (73542Y) CHOICE PT Roscoe 1 [id number] 215175 822833 982113 5 Extra Scientific Support 182cm wire (3097525P2) GUIDE 6FR Cardinal 1 [id number] 952567 000360 363667 2 XB 3.5 Health catheter (52369736) Signature Audit [place] Stage Time Signature Unsigned Intra-Procedure 07/21/2018 Sabas Benavides RT(Azalia) 11:52:34 AM Signatures Monitor : Sabas Benavides RT Signature : Date : Time : [facility] [address] [place] [address]
--- NOTE | ~2018-07-20 | OP ---
PATIENT NAME: JENNI CHEN SR MEDICAL RECORD: [id number] :62 LOCATION:D.M2 D.2105 ADMISSION DATE:07/20/18 SURGEON: ADELE TAYLOR MD DATE OF OPERATION: 07/21/2018 PROCEDURE: 1. Left heart catheterization. 2. Selective coronary angiography. 3. Left ventriculogram. 4. Intravascular ultrasound. INDICATION: Angina, coronary artery disease, previous PTCA stent. PROCEDURE IN DETAIL: After informed consent was obtained and after a detailed description of risks, benefits as well as alternative therapies, the patient elected to proceed with angiogram and heart catheterization. The right radial area was prepped and draped in normal sterile fashion. Right radial artery was cannulated via modified Seldinger technique with placement of 5-Macedonian sheath. All catheters exchanged through this sheath. FINDINGS: Left ventriculogram was performed in standard 30-degree YUSUF view, reveals good cardiac wall motion throughout all segments. Overall ejection fraction estimated 60%. SELECTIVE CORONARY ANGIOGRAPHY: 1. Left main is with no significant angiographic disease. 2. Left anterior descending has previously placed stents, these are widely patent with no significant restenosis. No disease elsewise at the LAD or its branches. 3. Left circumflex has moderate irregularities, but no flow-limiting stenosis. 4. Right coronary artery has moderate irregularities, but no flow-limiting stenosis. 5. Intravascular ultrasound was performed of an area in the circumflex, but this was only tortuosity of the vessel, no significant stenosis. OVERALL IMPRESSION: Wide patency of the previously placed stents. No significant disease elsewise. Continue medical management of the coronary artery disease and cardiac risk factors. TRANSINT:[id number] Voice Confirmation ID: [id number] DOCUMENT ID: [id number] ADELE TAYLOR MD CC: [id number] DICTATION DATE: 07/21/18 1153 BOOTS AND SHOES SUPERVISOR: 07/21/18 1322 ADM IN [facility] [address] [place] [address]
--- NOTE | ~2018-07-20 | CN ---
PATIENT NAME:JENNI CHEN MEDICAL RECORD: [id number] : 62 LOCATION:D. D.2105 ADMIT DATE: 07/20/18 ACCOUNT: [id number] CONSULTING PHYSICIAN: ADELE TAYLOR MD REFERRING PHYSICIAN: ANGELO GUTHRIE MD DATE OF CONSULTATION: 07/20/2018 ADMITTING DIAGNOSES: 1. Angina. 2. Coronary artery disease. 3. Previous percutaneous transluminal coronary angioplasty stent. 4. Hyperlipidemia. 5. Smoking history. 6. Chronic obstructive pulmonary disease. HISTORY OF PRESENT ILLNESS: This is a gentleman with past history of coronary artery disease. Last cardiac stent 3 years ago. He has been having 1 week of increasing episodes of chest pain. His chest pain is left-sided, like his previous angina, it has been coming on in an increasing fashion. He as well; however, he has felt increasing shortness of breath. His chest x-ray is compatible with right lower lobe pneumonia. PHYSICAL EXAMINATION: GENERAL APPEARANCE: Well-nourished, well-developed, appears stated age. Level of distress, comfortable. PSYCHIATRIC: Mental status, alert, normal affect. Orientation, oriented to time, place and person. EYES: Lids and conjunctiva, noninjected. No discharge, no pallor. ENT: Lips, teeth, gums, normal dentition. Oropharynx, no cyanosis, no pallor. NECK: Carotid arteries, bilateral normal upstroke, no bruits, no thrills. JUGULAR VEINS: No jugular venous pressure or distention. CERVICAL LYMPH NODES: Nontender, nonenlarged. THYROID: Not enlarged. Nontender. No nodules. LUNGS: Respiratory effort, unlabored. CHEST: Normal curvature. No thoracic deformity. No chest wall tenderness. Percussion, resonant. Auscultation, clear. No wheezes, no rales, no rhonchi. CARDIOVASCULAR: Precordial exam, nondisplaced. No heaves or pericardial thrills. Rate and rhythm, regular. Heart sounds, normal S1, normal S2. No S3, no gallop, no rub. Systolic murmur, not heard. Diastolic murmur, not heard. EXTREMITIES: No cyanosis, no edema. Peripheral pulses, full and equal in all extremities, except as noted. No bruits appreciated. ABDOMEN: Soft, nondistended. Normal aorta. No bruit. Nontender. No masses. Liver, nontender, no hepatomegaly. Spleen, nontender, no splenomegaly. MUSCULOSKELETAL: No joint tenderness. No joint swelling. No erythema. NEUROLOGICAL: Normal gait, normal strength, normal tone. SKIN: Warm and dry. OVERALL IMPRESSION: Chest pain compatible with angina in an escalating unstable fashion along with pneumonia. Most likely, he has recurrent hemodynamically significant coronary artery disease and pneumonia. He is being treated with IV antibiotics for the pneumonia. We will proceed with coronary angiography. Further care depends upon findings of the angiography. TRANSINT:[id number] Voice Confirmation ID: [id number] DOCUMENT ID: [id number] CONSULT REPORT [id number] JENNI CHEN SR, JEFFREY MD CC: [id number] DICTATION DATE: 07/21/18435 MOLD PULLER: 07/21/18 0501 ADM IN [facility] [address] [place] [address]
[~2018-07-20 16:36] MED LIST changes: -NITROQUICK0.4 MG; +NITROQUICK0.4 MG SL
[2018-07-20] MEDS ORDERED: NEURONTIN 300300 MG PO (16:46)
[2018-07-20] MEDS ORDERED: ADVAIR HFA [SP]12 GM INH (16:46)
[2018-07-20] MEDS ORDERED: REVATIO20 MG PO (16:47)
[2018-07-20] MEDS ORDERED: ZOLOFT100 MG PO (16:47)
[2018-07-20] MEDS ORDERED: TRAZODONE HCL150 MG PO (16:48)
[2018-07-20] MEDS ORDERED: ABILIFY10 MG PO (16:48)
[2018-07-20 17:38] LABS: BASOPHILS 0.5 % (0-2); EOSINOPHILS 2.6 % (0-7); HEMATOCRIT 40.3 % (42.0-54.0); HEMOGLOBIN 13.8 g/dL (13.5-17.5); IMMATURE GRANULOCYTES 0.5 % (0-5); LYMPHOCYTES 29.7 % (15-50); MCH 31.2 pg (26.0-34.0); MCHC 34.2 g/dL (31.0-37.0); MEAN PLATELET VOLUME 9.3 fL (7.4-10.4); MONOCYTES 11.1 % (2-11); NEUTROPHILS 55.6 % (40-80); PLATELET COUNT 210 10x3/uL (130-400); RBC 4.43 10x6/uL (4.20-6.10); RDW 12.7 % (11.5-14.5)
[2018-07-20 17:48] LABS: INR 1.1 (0.85-1.17); PROTIME 13.7 SECONDS (11.6-15.0)
[2018-07-20 17:49] LABS: APTT 31.2 SECONDS (22.8-39.4)
[2018-07-20 17:53] LABS: ALBUMIN 3.7 g/dL (3.4-5.0); ALKALINE PHOSPHATASE 81 U/L (46-116); ALT (SGPT) 47 U/L (10-68); BILIRUBIN - TOTAL 0.22 mg/dL (0.2-1.3); CALC OSMOLALITY 281 mosm/kg (275-300); CALCIUM 8.5 mg/dL (8.5-10.1); CARBON DIOXIDE 29.5 mmol/L (21.0-32.0); CHLORIDE - SERUM 104 mmol/L (98-107); CREATININE - SERUM 1.1 mg/dL (0.6-1.3); POTASSIUM - SERUM 3.9 mmol/L (3.5-5.1); PROTEIN - SERUM 7.4 g/dL (6.4-8.2); SODIUM 141 mmol/L (136-145); UREA NITROGEN 14 mg/dL (7-18); eGFR NON AFRICAN AMERICAN 73 mL/min (90-120)
[2018-07-20 18:00] LABS: GLUCOSE 104 mg/dL (74-106)
[2018-07-20 18:04] LABS: CKMB 1.7 U/L (0.0-3.6); CREATINE KINASE 303 UL (21-232)
[2018-07-20 18:05] LABS: TROPONIN-I < 0.017 ng/mL (0.000-0.060)
[2018-07-20 18:24] VITALS: BP 122/79
--- NOTE | 2018-07-20 19:45 | NUR ---
ADMITED FROM ER VIA STRETCHER TO 2104 ..DENIES CP OR NEEDS. BED LOW AND SRX2 CALL LIGHT IN PLACE. ADMISSION DONE AND MEDS REVIEWED
[2018-07-20 20:45] VITALS: BP 109/63
--- NOTE | 2018-07-20 23:36 | NUR ---
PT AMBLITORY NO SCD NEEDED AND NO CP WITH TELEMETRY ON HOLD
[2018-07-20 23:37] VITALS: BP 92/42
[2018-07-21 01:28] VITALS: BP 109/63; BMI 37.8
[2018-07-21 05:44] LABS: BASOPHILS 0.8 % (0-2); EOSINOPHILS 2.7 % (0-7); HEMATOCRIT 40.5 % (42.0-54.0); HEMOGLOBIN 13.8 g/dL (13.5-17.5); IMMATURE GRANULOCYTES 0.3 % (0-5); LYMPHOCYTES 29.8 % (15-50); MCH 31.4 pg (26.0-34.0); MCHC 34.1 g/dL (31.0-37.0); MCV 92.3 fL (80.0-100.0); MEAN PLATELET VOLUME 9.6 fL (7.4-10.4); MONOCYTES 10.9 % (2-11); NEUTROPHILS 55.5 % (40-80); PLATELET COUNT 192 10x3/uL (130-400); RBC 4.39 10x6/uL (4.20-6.10); RDW 12.9 % (11.5-14.5); WBC 7.4 10x3/uL (4.8-10.8)
[2018-07-21 06:16] VITALS: BP 126/73
[2018-07-21 06:22] LABS: CALC OSMOLALITY 280 mosm/kg (275-300); CALCIUM 8.5 mg/dL (8.5-10.1); CARBON DIOXIDE 31.4 mmol/L (21.0-32.0); CHLORIDE - SERUM 105 mmol/L (98-107); CKMB 1.3 U/L (0.0-3.6); CREATINE KINASE 228 UL (21-232); CREATININE - SERUM 1.1 mg/dL (0.6-1.3); GLUCOSE 84 mg/dL (74-106); POTASSIUM - SERUM 4.2 mmol/L (3.5-5.1); SODIUM 141 mmol/L (136-145); TROPONIN-I < 0.017 ng/mL (0.000-0.060); UREA NITROGEN 14 mg/dL (7-18); eGFR NON AFRICAN AMERICAN 73 mL/min (90-120)
--- NOTE | 2018-07-21 07:14 | NUR ---
REPORT RECEIVED FROM FLAME CHANNELER AND PATIENT CARE ASSUMED. PATIENT AWAKE, ALERT, AND ORIENTED X 4. VSS. PATIENT DENIES ANY NEEDS OR PAIN. PATIENT IS NPO AWAITING HEART CATH. WILL CONTINUE TO MONITOR. SR UP X 2 BED IN LOW POSTION AND CALL LIGHT IN REACH.
--- NOTE | 2018-07-21 08:15 | NUR ---
PATIENT REFUSED TO WEAR SCD'S.
[2018-07-21 08:24] VITALS: BP 132/74
[2018-07-21 09:47] VITALS: BMI 37.7
--- NOTE | 2018-07-21 11:00 | NUR ---
PATIENT IS STABLE AND VSS. PATIENT TO [employer] VIA HOSPITAL BED AND [employer] PERSONNEL.
[2018-07-21 11:35] VITALS: Ht 180.3 cm; Wt 122.8 kg
[2018-07-21 11:36] VITALS: BP 134/59
--- NOTE | 2018-07-21 12:15 | NUR ---
PATIENT RETURNED FROM MARKETING LIAISON. PATIENT IS STABLE AND VSS. TR BAND TO RT WRIST INTACT. NO BLEEDING, HEMATOMA OR BRUISING NOTED. PATIENT SLEEPY BUT AROUSES EASILY AND ORIENTED X4. PATIENT DENIES ANY NEEDS OR PAIN. WILL CONTINUE TO MONITOR.
--- NOTE | 2018-07-21 13:00 | NUR ---
PATIENT AWAKE ALERT. PATIENT IS STABLE AND UNCHANGED. TR BAND INTACT. NO BLEEDING BRUISING OR SWELLING NOTED TO RT WRIST. WILL CONTINUE TO MONITOR.
--- NOTE | 2018-07-21 14:05 | NUR ---
PATIENT RESTING COMFORATBLY WITH EYES CLOSED AND BREATHING EVENLY. REMOVED 5 CC'S OF AIR FROM TR BAND . BRIGHT RED BLOOD NOTED. IMMEDIATELY REPLACED 5 CC AIR. NO BLEEDING NOTED. TR BAND INTACT. WILL WAIT 1 HOUR AND ATTEMPT REMOVAL AGAIN.
--- NOTE | 2018-07-21 15:20 | NUR ---
REMOVED 5 CC'S AIR FROM TR BAND. TINY AMOUNT OF BRIGHT RED BLOOD NOTED. REPLACED 5 CC OF AIR. TR BAND INTACT AND NO BLEEDING NOTED.
[2018-07-21 15:23] VITALS: BP 116/61
--- NOTE | 2018-07-21 16:01 | NUR ---
PATIENT LAYING IN BED WITH EYS CLOSED AND BREATHING EVENLY. WILL CONTINUE TO MONITOR.
--- NOTE | 2018-07-21 17:30 | NUR ---
REMOVED 5 CC OF AIR NO BLEEDING NOTED. REMOVED ADDITIONAL AIR AND NO BLEEDING BRUISING OR HEMATOMA NOTED. REPLACED SPLINT TO RT HAND. WILL CONTINUE TO MONITOR.
--- NOTE | 2018-07-21 18:10 | NUR ---
NO BLEEDING , BRUISING OR HEMATOMA NOTED TO RT WRIST. RT WRIST SPLINT INTACT. PATIENT IS STABLE AND VSS. WILL CONTINUE TO MONITOR.
--- NOTE | 2018-07-21 19:55 | NUR ---
RESUMING PT CARE. PT IS ALERT LAYING IN BED. NO C/O VOICED. NO S/S OF DISTRESS NOTED. BED IN LOW POSITION WITH CALL LIGHT IN REACH. WILL CONTINUE TO MONITOR PT AND FOLLOW PLAN OF CARE.
[2018-07-21 20:00] VITALS: BP 123/66
[2018-07-22] VITALS: BP 116/69
[2018-07-22 04:00] VITALS: BP 129/76
--- NOTE | 2018-07-22 05:11 | NUR ---
I have reviewed this patient and I concur with the Shift Assessment completed by the Licensed Practical Nurse today this shift.
[2018-07-22 08:00] VITALS: BP 128/89
[2018-07-22] MEDS ORDERED: LEVAQUIN750 MG PO (10:54)
[2018-07-22 12:11] VITALS: BP 113/67
--- NOTE | 2018-07-22 12:41 | MORECARE ---
CASE MANAGEMENT DISCHARGE SUMMARY PATIENT: JENNI CHEN UNIT: [id number] ADM DATE: 07/20/18 AGE: 58 : 62 SEX: M ROOM/BED: D.2101 AUTHOR: KAI,DOC PHYSICIAN: REFERRING PHYSICIAN: ANGELO GUTHRIE MD DATE OF SERVICE: 07/22/18 Discharge Plan Patient Name: JENNI CHEN Facility: [facility]:[place] : 1960 Planned Disposition: Home Anticipated Discharge Date: 07/22/18 Discharge Date: Expected LOS: 2 Initial Reviewer: [email or web address] Initial Review Date: 07/22/2018 Generated: 07/22/18 1:41 pm Comments DCP- Discharge Planning Updated by [email or web address]: Thomas Gimenez on 07/22/18 11:[address] Patient Name: JENNI CHEN Admission Status: ER Accout number: [id number] Admission Date: 07-20-2018 : 1960 Admission Diagnosis:CHEST PAIN, UNSPECIFIED Attending: ANGELO GUTHRIE Current LOS: 2 Anticipated DC Date: 07-22-2018 Planned Disposition: Home Primary Insurance: [facility] [employer] LENA Discharge Planning Comments: CM MET WITH PT AND FRIEND IN ROOM TO DISCUSS DISCHARGE PLANNING AND NEEDS. JENNI CHEN provided verbal consent to discuss current and ongoing needs with/in the presence of: FRIEND, CHINTAN CEE. PT REPORTS LIVING AT HOME INDEPENDENTLY WITH HIS BROTHER. PT HAS CPAP FROM [facility] AND NO OUTSIDE SERVICES ASSISTING IN THE HOME. CM DISCUSSED AVAILABILITY OF HOME HEALTH, REHAB SERVICES AND MEDICAL EQUIPMENT. PT DENIES DISCHARGE NEEDS, REPORTS HIS FRIEND CHINTAN IS HERE TO PICK HIM UP FOR DISCHARGE HOME NOW. PEST MANAGEMENT SUPERVISOR NURSE NOTIFIED. Asbestos Hazard Abatement Worker: Thomas Gimenez DCPIA - Discharge Planning Initial Assessment Updated by [email or web address]: Thomas Gimenez on 07/22/18 12:38 pm * Is the patient Alert and Oriented? Yes * How many steps to enter\exit or inside your home? * PCP DR GRANDA * Pharmacy [facility] * Preadmission Environment Home with Family * ADLs Independent * Equipment CPAP * Other Equipment [facility] - MEDICAL EQUIPMENT PROVIDER PREFERENCE * List name and contact numbers for known caregivers / representatives who currently or will assist patient after discharge: CHINTAN CEE, FRIEND, * Verbal permission to speak to the caregivers and representatives has been obtained from the patient. Yes * Community resources currently utilized None * Please name any agencies selected above. NONE * Additional services required to return to the preadmission environment? No * Can the patient safely return to the preadmission environment? Yes * Has this patient been hospitalized within the prior 30 days at any hospital? No Patient Name: JENNI CHEN Page [id number] at 1241 All edits/amendments must be made on the electronic document DICTATION DATE: 07/22/18 124 RECREATIONAL SPORTS DIRECTOR: VINOD 07/22/18 1241 RPT#: [id number] DC DATE: STATUS: ADM IN [facility] [address] [place] [address] END OF REPORT
== END 2018-07-22 14:39 | disposition home or self-care (01) | DRG 287 ==
LOC: D.ER 16:36 → D.M2 18:48 → D.EDHOLD 18:48 → D.M2 19:28
PROVIDERS: Family Medicine; Internal Medicine Interventional Cardiology; ADMIT Internal Medicine Nephrology; ATTEND Internal Medicine Nephrology
PROC: B2151ZZ Fluoroscopy of Left Heart using Low Osmolar Contrast (ICD-10-PCS; 2018-07-21)
PROC: 4A023N7 Measurement of Cardiac Sampling and Pressure, Left Heart, Percutaneous Approach (ICD-10-PCS; 2018-07-21)
PROC: B240ZZ3 Ultrasonography of Single Coronary Artery, Intravascular (ICD-10-PCS; 2018-07-21)
PROC: B2111ZZ Fluoroscopy of Multiple Coronary Arteries using Low Osmolar Contrast (ICD-10-PCS; principal; 2018-07-21 11:00)
DX: I25.110 Atherosclerotic heart disease of native coronary artery with unstable angina pectoris (principal); F17.213 Nicotine dependence, cigarettes, with withdrawal; E78.5 Hyperlipidemia, unspecified; J44.9 Chronic obstructive pulmonary disease, unspecified